=== PATIENT | female | born 1955 | race Caucasian/White ===

== ENCOUNTER 2023-02-16 10:50 | Emergency (ER) | payer OTHER ==
[2023-02-16 11:05] VITALS: BMI 30.8
[2023-02-16 11:55] VITALS: BP 117/61; PULSE 81; RESP 19
== END 2023-02-16 12:04 | disposition home or self-care (01) ==
LOC: JER 10:50
DX: M54.2 Cervicalgia (principal); M79.18 Myalgia, other site
CPT/HCPCS: 82962; 99283-25